=== PATIENT | female | born 1965 | race Caucasian/White ===

== ENCOUNTER → 2021-08-27 | Day surgery (SDC) | payer OTHER ==
[~2021-08-27] VITALS: Ht 170.2 cm; Wt 104.3 kg
[~2021-08-27] MED LIST: AMARYL2 MG PO; COZAAR25 MG PO; CRESTOR10 MG PO; KRILL OIL500 MG PO; LANTUS **100 UNITS/ SC; METFORMIN HCL500 MG PO; MILK THISTLE1 GM PO; ORENCIA CL125 MG/1 M SC; OTEZLA30 MG PO; STEGLATRO5 MG PO; TALTZ AUTO80 MG/1 ML SC; TRULICITY1.5 MG/0.5 SC; VITAMIN D325 MC2 PO; XYZAL5 MG PO; ZETIA10 MG PO; ZOLOFT100 MG PO
[2021-08-27 07:37] LABS: HCG (URINE) SCREEN POSITIVE (NEGATIVE)
== END | disposition home or self-care (01) ==
LOC: FAS 06:35
PROVIDERS: Anesthesiology
DX: Z12.11 Encounter for screening for malignant neoplasm of colon (principal); D12.2 Benign neoplasm of ascending colon; I10 Essential (primary) hypertension; E11.9 Type 2 diabetes mellitus without complications; E78.00 Pure hypercholesterolemia, unspecified; M19.90 Unspecified osteoarthritis, unspecified site; F41.9 Anxiety disorder, unspecified; Z79.4 Long term (current) use of insulin; Z79.899 Other long term (current) drug therapy; Z72.89 Other problems related to lifestyle; Z87.891 Personal history of nicotine dependence
CPT/HCPCS: 36415; 84702; 84703; J2250; J2704; J7120